=== PATIENT | female | born 1980 ===

== ENCOUNTER 2019-01-21 06:57 | Day surgery (SDC) | payer OTHER ==
[~2019-01-21 06:57] MED LIST: CALCIUM; EMERGEN-C 500500 MG PO; FOLGARD TABLET1 EACH PO; SINGULAIR10 MG PO; ZYRTEC10 M3 PO
[2019-01-21] MEDS ORDERED: DOXYCYCLINE HY100 M2 PO (10:29)
[2019-01-21] MEDS ORDERED: ULTRACET PO (10:29)
== END 2019-01-21 15:20 | disposition home or self-care (01) ==
LOC: CIR.AMB 06:57
DX: D25.0 Submucous leiomyoma of uterus (principal)